=== PATIENT | female | born 1965 | race Caucasian/White ===

== ENCOUNTER 2019-01-21 16:39 | Emergency (ER) | payer OTHER ==
[2019-01-21] MEDS ORDERED: NA CHLORIDE 0.9% 1,000 ML ONE (17:33)
[2019-01-21 18:03] LABS: Absolute Lymphocytes (CBC) 0.4 K/uL (0.7-4.9); Basophils % 0.6 % (0-1.3); Hematocrit 36.9 % (36.0-45.0); Lymphocytes % 3.5 % (15.3-44.8); MPV 7.3 fL (7.6-11.3); RBC Red Blood Cell Count 4.34 M/uL (3.86-4.86)
[2019-01-21 18:12] LABS: Albumin 3.6 g/dL (3.4-5.0); Bilirubin Total 0.8 mg/dL (0.2-1.0); Potassium 3.8 mmol/L (3.5-5.1); Protein, Total 8.1 g/dL (6.4-8.2)
--- NOTE | 2019-01-21 19:37 | RAD REPORT ---
EXAM DESCRIPTION: CT - Abdomen Pelvis Wo Contrast - 01/21/2019 7:16 pm CLINICAL HISTORY: Abdominal pain COMPARISON: None TECHNIQUE: Computed axial tomography of the abdomen and pelvis was obtained. IV was not requested. O ral contrast was given. Coronal reconstructions performed. All CT scans are performed using dose optimization technique as appropriate and may include automated exposure control or mA/KV adjustment according to patient size. FINDINGS: The evaluation of solid organs and vessels is limited secondary to the lack of contrast a dministration. The right kidney is enlarged with little normal appearing parenchyma. Innumerable cysts are present. No hemorrhage is seen within the cysts. Left kidney is absent. Transplant kidney is present within the left pelvis. No hydronephrosis There is no evidence of diverticulitis. There are many hepatic cysts. Spleen, pancreas and adrenals appear grossly normal Hysterectomy IMPRESSION: No acute abnormality is displayed.
[2019-01-21 20:19] LABS: Urine Blood 1+ (NEG); Urine Glucose NEGATIVE (NEG); Urine Protein NEGATIVE (NEG)
[2019-01-21 20:50] LABS: Urine Bacteria >50 /HPF (<20); Urine Culture Reflex Order REFLEXED; Urine RBC <5 /HPF (NONE SEEN)
[2019-01-21] MEDS ORDERED: CEFTRIAXONE/SWI 1gm 1 GM/10 ML SYR ONE (21:02)
--- NOTE | 2019-01-21 21:04 | ER ---
Nurse's Notes [facility] Name: Lexie Quintana Age: 53 yrs Sex: Female : 1965 Arrival Date: 01/21/2019 Time: 16:42 Bed 14 Private MD: Diagnosis: Acute cystitis without hematuria Presentation: 01/21 16:43 Presenting complaint: Patient states: diarrhea since August 2018 and started with fever, sv vomiting, LUQ/LLQ pain x 1 week. Was dx with diverticulitis and ulcerative colitis recently. Transition of care: patient was not received from another setting of care. Onset of symptoms was January 2019. Risk Assessment: Do you want to hurt yourself or someone else? Patient reports no desire to harm self or others. Care prior to arrival: None. 16:43 Method Of Arrival: Ambulatory sv 16:43 Acuity: ALE 3 sv 16:45 Initial Sepsis Screen: Does the patient meet any 2 criteria? No. Patient's initial rb1 sepsis screen is negative. Does the patient have a suspected source of infection? No. Patient's initial sepsis screen is negative. 16:56 Note Had labs drawn at [facility], BUN-26, creatinine-1.62, absolute neutrophils 8110, sv absolute lymphocytes 750, absolute monocytes 1080. Historical: - Allergies: 16:55 Sulfa (Sulfonamide Antibiotics); sv - PMHx: 16:55 Hypertension; Diverticulitis; ulcerative colitis; Polycystic kidney disease; sv - PSHx: 16:55 left kidney transplant; right arm fistula from previous HD; Hysterectomy; ankle; sv - Immunization history:: Adult Immunizations up to date, Flu vaccine is up to date. - Social history:: Smoking status: Patient/guardian denies using tobacco. - Ebola Screening: : No symptoms or risks identified at this time. Screenin:45 Abuse screen: Denies threats or abuse. Nutritional screening: decreased appetite. rb1 Tuberculosis screening: No symptoms or risk factors identified. Fall Risk None identified. Assessment: 16:45 General: Appears in no apparent distress. comfortable, Behavior is calm, cooperative, rb1 Reports fever for. Pain: Complains of pain in left upper quadrant and left lower quadrant Pain currently is 5 out of 10 on a pain scale. Neuro: Level of Consciousness is awake, alert, obeys commands, Oriented to person, place, time, situation. Cardiovascular: Capillary refill < 3 seconds is brisk in bilateral fingers. Respiratory: Airway is patent Respiratory effort is even, unlabored, Respiratory pattern is regular, symmetrical. GI: Abdomen is non-distended, Reports diarrhea, nausea, vomiting. : No signs and/or symptoms were reported regarding the genitourinary system. Derm: Skin is pink, warm \T\ dry. dialysis graft in the right arm. 17:45 Reassessment: Patient appears in no apparent distress at this time. No changes from rb1 previously documented assessment. Pt. is talking in her telephone. 17:55 Reassessment: Called CT to notify them that th pt. finished their contrast. rb1 18:51 Reassessment: Patient appears in no apparent distress at this time. Patient and/or rb1 family updated on plan of care and expected duration. Pain level reassessed. Patient is alert, oriented x 3, equal unlabored respirations, skin warm/dry/pink. 19:12 Reassessment: Pt taken to CT. ea 19:20 Reassessment: Returned from CT. ea 19:25 General: Appears in no apparent distress. Behavior is calm, cooperative. Pain: Denies ea pain. Neuro: Level of Consciousness is awake, alert, obeys commands, Oriented to person, place, time, situation. Respiratory: Airway is patent Respiratory effort is even, unlabored, Respiratory pattern is regular, symmetrical. GI: Abdomen is non-distended, Reports diarrhea, nausea, vomiting. Derm: Skin is pink, warm \T\ dry. 20:26 Reassessment: Patient and/or family updated on plan of care and expected duration. Pain ea level reassessed. Patient is alert, oriented x 3, equal unlabored respirations, skin warm/dry/pink. Awaiting on lab results. Vital Signs: 16:55 BP 120 / 83; Pulse 83; Resp 16; Pulse Ox 99% ; Weight 88.45 kg; Height 5 ft. 5 in. sv (165.10 cm); 17:55 BP 117 / 82; Pulse 76; Resp 17; Temp 98.0(O); Pulse Ox 99% ; Pain 5/10; rb1 19:38 BP 120 / 65; Pulse 72; Resp 18; Pulse Ox 97% on R/A; ea 20:27 BP 115 / 66; Pulse 68; Resp 18; Pulse Ox 99% on R/A; ea 16:55 Body Mass Index 32.45 (88.45 kg, 165.10 cm) sv ED Course: 16:42 Patient arrived in ED. mr 16:54 Triage completed. sv 16:54 Cortez Tsai MD is Attending Physician. ps1 16:56 Arm band placed on. sv 17:30 Lexie Gutiérrez, RN is Primary Nurse. rb1 17:40 Inserted saline lock: 22 gauge in left antecubital area, using aseptic technique. Blood rb1 collected. 17:45 Missed attempt(s): 20 gauge in left forearm. antecubital area. mh5 17:46 Patient has correct armband on for positive identification. Bed in low position. Call mh5 light in reach. Side rails up X 1. Warm blanket given. Pulse ox on. NIBP on. 18:55 Report given to RASHEED Martin. rb1 19:16 CT completed. Patient tolerated procedure well. Patient moved to CT via wheelchair. nj Patient moved back from CT. 19:16 CT Abd/Pelvis - Without Cont (PO Contrast Only) In Process Unspecified. EDMS 21:22 No provider procedures requiring assistance completed. ea 21:43 IV discontinued, intact, bleeding controlled, No redness/swelling at site. Pressure ea dressing applied. Administered Medications: 17:40 Drug: NS 0.9% 1000 ml Route: IV; Rate: 1 bolus; Site: left antecubital; rb1 19:50 Follow up: Response: No adverse reaction; IV Status: Completed infusion; IV Intake: ea 1000ml 21:21 Drug: Rocephin 1 grams Route: IV; Rate: bolus; Site: left antecubital; ea 21:42 Follow up: Response: No adverse reaction; IV Status: Completed infusion ea Intake: 19:50 IV: 1000ml; Total: 1000ml. ea Outcome: 21:03 Discharge ordered by . ps1 21:42 Discharged to home ambulatory, with family. ea 21:42 Condition: stable 21:42 Discharge instructions given to patient, Instructed on discharge instructions, follow up and referral plans. medication usage, Demonstrated understanding of instructions, follow-up care, medications. 21:43 Patient left the ED. ea Addendum: 01/25/2019 11:03 Addendum: Culture Results: Positive urine culture. Bacteria is resistant to, has i w intermediate sensitivity, or is not tested against prescribed antibiotics. Report given to KERRI for further evaluation and then to lehr attendant for follow up with patient. Phone call Attempt #1 phone number not in service. Signatures: Dispatcher [employer] Shelly Vance, RN RASHEED gilbert Hurtado, Carmelita Segura, Nneka, RN Lexie Oakley, RN RN rb1 Blayne, Jesús Chowdary, Kacie [facility] Veronica García RN RN ea Singer, Phillip, MD MD ps1 Corrections: (The following items were deleted from the chart) 11:07 11:03 Addendum: Culture Results: Positive urine culture. Bacteria is resistant to, has iw intermediate sensitivity, or is not tested against prescribed antibiotics. Report given to KERRI for further evaluation and then to lehr attendant for follow up with patient. Phone call Attempt #1 pt states symptoms have improved, will make f/u appt with Dr. Kalani fournier
--- NOTE | 2019-01-21 21:04 | EDPHYS ---
Physician Documentation [facility] Name: Lexie Quintana Age: 53 yrs Sex: Female : 1965 Arrival Date: 01/21/2019 Time: 16:42 Bed 14 Private MD: ED Physician Cortez Tsai HPI: 01/21 17:44 This 53 yrs old Female presents to ER via Ambulatory with complaints of ps1 Vomiting/Diarrhea, Fever. 17:44 patient has a remote kidney transplant. Hx of nvd with BRBPR recently was treated for ps1 diverticulitis with cipro/flayl per Dr. Sanchez. No has recurrent diarrhea and fever. 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 Pain is mild. Not tolerating PO as much as usual and feels dehydrated. . Historical: - Allergies: 16:55 Sulfa (Sulfonamide Antibiotics); sv - PMHx: 16:55 Hypertension; Diverticulitis; ulcerative colitis; Polycystic kidney disease; sv - PSHx: 16:55 left kidney transplant; right arm fistula from previous HD; Hysterectomy; ankle; sv - Immunization history:: Adult Immunizations up to date, Flu vaccine is up to date. - Social history:: Smoking status: Patient/guardian denies using tobacco. - Ebola Screening: : No symptoms or risks identified at this time. ROS: 17:44 Cardiovascular: Negative for chest pain, palpitations, and edema, Respiratory: Negative ps1 for shortness of breath, cough, wheezing, and pleuritic chest pain, MS/Extremity: Negative for injury and deformity, Skin: Negative for injury, rash, and discoloration, Neuro: Negative for headache, weakness, numbness, tingling, and seizure. 17:44 Constitutional: Positive for body aches, fatigue, fever. 17:44 Abdomen/GI: Positive for nausea, vomiting, and diarrhea, bloody stools. Exam: 17:44 Constitutional: This is a well developed, well nourished patient who is awake, alert, ps1 and in no acute distress. Head/Face: Normocephalic, atraumatic. Eyes: Pupils equal round and reactive to light, extra-ocular motions intact. Lids and lashes normal. Conjunctiva and sclera are non-icteric and not injected. Chest/axilla: Normal chest wall appearance and motion. Nontender with no deformity. No lesions are appreciated. Cardiovascular: Regular rate and rhythm. No gallops, murmurs, or rubs. Normal PMI, no JVD. No pulse deficits. Respiratory: Lungs have equal breath sounds bilaterally, clear to auscultation and percussion. No rales, rhonchi or wheezes noted. No increased work of breathing, no retractions or nasal flaring. Abdomen/GI: Soft, non-tender, with normal bowel sounds. No distension or tympany. No guarding or rebound. No evidence of tenderness throughout. MS/ Extremity: Pulses equal, no cyanosis. Neurovascular intact. Full, normal range of motion. Neuro: Awake and alert, GCS 15, oriented to person, place, time, and situation. Cranial nerves II-XII grossly intact. Sensory grossly intact. Psych: Awake, alert, with orientation to person, place and time. Behavior, mood, and affect are within normal limits. Vital Signs: 16:55 BP 120 / 83; Pulse 83; Resp 16; Pulse Ox 99% ; Weight 88.45 kg; Height 5 ft. 5 in. sv (165.10 cm); 17:55 BP 117 / 82; Pulse 76; Resp 17; Temp 98.0(O); Pulse Ox 99% ; Pain 5/10; rb1 19:38 BP 120 / 65; Pulse 72; Resp 18; Pulse Ox 97% on R/A; ea 20:27 BP 115 / 66; Pulse 68; Resp 18; Pulse Ox 99% on R/A; ea 16:55 Body Mass Index 32.45 (88.45 kg, 165.10 cm) sv MDM: 17:15 Patient medically screened. ps1 21:04 Data reviewed: vital signs, nurses notes, lab test result(s), radiologic studies, and ps1 as a result, I will discharge patient. Counseling: I had a detailed discussion with the patient and/or guardian regarding: the historical points, exam findings, and any diagnostic results supporting the discharge/admit diagnosis, lab results, radiology results, the need for outpatient follow up, to return to the emergency department if symptoms worsen or persist or if there are any questions or concerns that arise at home. 01/21 17:09 Order name: CBC with Diff; Complete Time: 21:32 ps1 01/21 17:09 Order name: CMP; Complete Time: 18:17 ps1 01/21 17:09 Order name: Lactate; Complete Time: 18:17 ps1 01/21 17:09 Order name: Procalcitonin; Complete Time: 18:56 ps1 01/21 20:06 Order name: Urine Dipstick--Ancillary (enter results); Complete Time: 20:22 mw2 01/21 20:06 Order name: Urine --Ancillary (enter results); Complete Time: 20:22 mw2 01/21 17:09 Order name: CT Abd/Pelvis - Without Cont (PO Contrast Only); Complete Time: 19:41 ps1 01/21 20:06 Order name: Urine Microscopic Only; Complete Time: 20:52 ea 01/21 20:52 Order name: Urine Culture EDMS 01/21 21:27 Order name: Manual Differential; Complete Time: 21:32 EDMS Administered Medications: 17:40 Drug: NS 0.9% 1000 ml Route: IV; Rate: 1 bolus; Site: left antecubital; rb1 19:50 Follow up: Response: No adverse reaction; IV Status: Completed infusion; IV Intake: ea 1000ml 21:21 Drug: Rocephin 1 grams Route: IV; Rate: bolus; Site: left antecubital; ea 21:42 Follow up: Response: No adverse reaction; IV Status: Completed infusion ea Disposition: 01/21/19 21:03 Discharged to Home. Impression: Acute cystitis without hematuria. - Condition is Stable. - Discharge Instructions: Urinary Tract Infection, Adult. - Prescriptions for Keflex 500 mg Oral Capsule - take 1 capsule by ORAL route every 8 hours for 10 days; 30 capsule. - Work release form, Medication Reconciliation Form, Thank You Letter, Antibiotic Education, Prescription Opioid Use form. - Follow up: Private Physician; When: As needed; Reason: Further diagnostic work-up, Recheck today's complaints, Continuance of care, Re-evaluation by your physician. Follow up: Emergency Department; When: As needed; Reason: Fever > 102 F, Worsening of condition. Signatures: Dispatcher [employer] EDShelly Thakkar RN Lexie Ca RN RN rb1 Veronica García RN RN ea Singer, Phillip, MD MD ps1 Corrections: (The following items were deleted from the chart) 21:43 21:03 01/21/2019 21:03 Discharged to Home. Impression: Acute cystitis without ea hematuria. Condition is Stable. Forms are Medication Reconciliation Form, Thank You Letter, Antibiotic Education, Prescription Opioid Use. Follow up: Private Physician; When: As needed; Reason: Further diagnostic work-up, Recheck today's complaints, Continuance of care, Re-evaluation by your physician. Follow up: Emergency Department; When: As needed; Reason: Fever > 102 F, Worsening of condition. ps1
[2019-01-21 21:27] LABS: Blood Morphology Comment NOT SEEN (NOT SEEN); Platelet Estimate ADEQ
[2019-01-21 21:51] VITALS: TEMP 98
[2019-01-21 21:54] VITALS: BP 115/66; O2SAT 99
== END 2019-01-21 21:43 | disposition home or self-care (01) ==
LOC: ER 16:39
DX: N30.00 Acute cystitis without hematuria (principal); I10 Essential (primary) hypertension; Z88.2 Allergy status to sulfonamides
CPT/HCPCS: 96365; 96361; 87088; 85025; 87086; 36415; 81025; 83605; 87077; 87186; 80053; 84145; 74176; 99284; J0696; J7030; 81003; 81015

== ENCOUNTER 2024-06-18 09:46 | Emergency (ER) | payer BC ==
[2024-06-18 10:31] LABS: Absolute Lymphocytes (CBC) 0.4 K/uL (0.7-4.9); Absolute Monocytes 0.4 K/uL (0.1-1.3); Absolute Neutrophil 4.2 K/uL (1.8-8.0); Basophils % 0.8 % (0-1.3); Hematocrit 43.1 % (36.0-45.0); Hemoglobin 14.5 g/dL (12.0-15.0); Lymphocytes % 7.3 % (15.3-44.8); MCHC 33.7 g/dL (32.0-36.0); MCV 88.9 fL (80-100); MPV 7.4 fL (7.6-11.3); Monocytes % 8.4 % (3.3-12.3); Neutrophils % 82.5 % (41.7-73.7); Nucleated Red Blood Cells % 0.1 % (0-0); Platelets 189 thou/uL (152-406); RBC Red Blood Cell Count 4.85 M/uL (3.86-4.86); Red Cell Distribution Width 18.7 % (12.1-15.2)
--- NOTE | 2024-06-18 10:44 | RAD REPORT ---
EXAMINATION: ONE VIEW CHEST XR CLINICAL INDICATION: Female, 58 years old.,CHEST PAIN TECHNIQUE: Frontal chest projection is submitted. Examination is limited by patient positioning and t echnique. COMPARISON: 09/09/2018 FINDINGS: Superimposition of breast soft tissues upon the left hemithorax limits evaluation. The lungs are well inflated and clear. No pneumothorax or sizable effusion. The heart is normal in size. Mediastinal contours are unremarkable. IMPRESSION: No acute intrathoracic abnormalities.
[2024-06-18 10:52] LABS: AST/SGOT 11 U/L (15-37); Albumin 3.6 g/dL (3.4-5.0); Alkaline Phosphatase 79 U/L (45-117); Anion Gap 8.8 mEq/L (5.0-15.0); BUN Blood Urea Nitrogen 16 mg/dL (7-18); Bicarbonate 28 mEq/L (21-32); Bilirubin Direct 0.3 mg/dL (0-0.2); Bilirubin Indirect, Calculated 0.9 mg/dL (0.2-0.8); Bilirubin Total 1.2 mg/dL (0.2-1.0); Globulin 3.6 g/dL (2.3-3.5); Glomerular Filtration Rate 53 ml/min (=/>90); Glucose Level 104 mg/dL (74-106); Potassium 3.8 mEq/L (3.5-5.1); Protein, Total 7.2 g/dL (6.4-8.2); Sodium Level 135 mEq/L (136-145); Troponin High Sensitivity 6.8 pg/mL (<58.9)
[2024-06-18 10:58] LABS: ALT/SGPT < 14 U/L (13-56)
--- NOTE | 2024-06-18 13:08 | ER ---
Nurse's Notes [facility] Name: Lexie Quintana Age: 58 yrs Sex: Female : 1965 Arrival Date: 06/18/2024 Time: 09:46 Bed 14 Private MD: Diagnosis: Chest pain, unspecified Presentation: 06/18 09:53 Chief complaint: Patient states: CHEST PAIN STARTED THIS AM STOPPED NOW BUT WANTED TO db GET CHECKED OUT. HEART CATH ON 05/27 IN [place]. Coronavirus screen: Client denies travel out of the [place] in the last 14 days. At this time, the client does not indicate any symptoms associated with coronavirus-19. Ebola Screen: Patient negative for fever greater than or equal to 101.5 degrees Fahrenheit, and additional compatible Ebola Virus Disease symptoms Patient denies exposure to infectious person. Patient denies travel to an Ebola-affected area in the 21 days before illness onset. No symptoms or risks identified at this time. Initial Sepsis Screen: Does the patient meet any 2 criteria? No. Patient's initial sepsis screen is negative. Does the patient have a suspected source of infection? No. Patient's initial sepsis screen is negative. Risk Assessment: Do you want to hurt yourself or someone else? Patient reports no desire to harm self or others. Onset of symptoms. 09:53 Method Of Arrival: Ambulatory db 09:53 Acuity: ALE 2 db Triage Assessment: 09:55 General: Appears in no apparent distress. comfortable, Behavior is calm, cooperative. db Pain: Denies pain. Complains of pain in chest. Neuro: Level of Consciousness is awake, alert, obeys commands, Oriented to person, place, time, situation. Cardiovascular:. Historical: - Allergies: 10:14 Sulfa (Sulfonamide Antibiotics); db - PMHx: 10:14 Diverticulitis; Hypertension; POLYCYSTIC KIDNEY DISEASE; ulcerative colitis; db - PSHx: 10:14 HEART CATH (ulcerative colitis); db - Immunization history:: Adult Immunizations unknown. - Infectious Disease History:: Denies. - Social history:: Smoking status: Patient denies any tobacco usage or history of. Screenin:00 [facility] ED Fall Risk Assessment (Adult) History of falling in the last 3 months, db including since admission No falls in past 3 months (0 pts) Confusion or Disorientation No (0 pts) Intoxicated or Sedated No (0 pts) Impaired Gait No (0 pts) Mobility Assist Device Used No (0 pt) Altered Elimination No (0 pt) Score/Fall Risk Level 0 - 2 = Low Risk Oriented to surroundings, Maintained a safe environment. Abuse screen: Denies threats or abuse. Denies injuries from another. Nutritional screening: No deficits noted. Tuberculosis screening: No symptoms or risk factors identified. Assessment: 10:00 Reassessment: SEE TRIAGE FOR INITIAL ASSESSMENT. db 12:00 Reassessment: Patient appears in no apparent distress at this time. Patient and/or db family updated on plan of care and expected duration. Pain level reassessed. Patient is alert, oriented x 3, equal unlabored respirations, skin warm/dry/pink. General: Appears in no apparent distress. comfortable, Behavior is calm, cooperative. Vital Signs: 09:53 BP 114 / 68; Pulse 80; Resp 16; Temp 98.7; Pulse Ox 100% ; Weight 61.69 kg; Height 5 db ft. 4 in. ; Pain 0/10; 10:30 BP 122 / 83; Pulse 72; Resp 16; Pulse Ox 99% on R/A; db 11:30 BP 117 / 91; Pulse 75; Resp 16; Pulse Ox 95% ; db 12:25 BP 125 / 89; Pulse 74; Resp 16; Pulse Ox 100% on R/A; dd2 13:26 BP 124 / 70; Pulse 72; Resp 16; Pulse Ox 96% on R/A; dd2 09:53 Body Mass Index 23.34 (61.69 kg, 162.56 cm) db 09:53 Pain Scale: Adult db ED Course: 09:47 Patient arrived in ED. gl 09:47 Jerson Irving MD is Attending Physician. rt 09:55 Arm band placed on Patient placed in an exam room. db 09:58 Pati Farooq, RASHEED is Primary Nurse. db 10:14 Triage completed. db 10:16 EKG done. db 10:20 Initial lab(s) drawn, by me, sent to lab. Inserted saline lock: 20 gauge in left db antecubital area, using aseptic technique. Blood collected. Flushed with 10 mL NS. Patient maintains SpO2 saturation greater than 95% on room air. 10:23 XRAY Chest (1 view) In Process Unspecified. EDMS 10:58 Patient has correct armband on for positive identification. Bed in low position. Call db light in reach. Side rails up X 1. Pulse ox on. NIBP on. 12:00 Pillow given. db 13:26 Provided Education on: d/c education. dd2 13:26 No provider procedures requiring assistance completed. IV discontinued, intact, dd2 bleeding controlled, No redness/swelling at site. Pressure dressing applied. Administered Medications: No medications were administered Medication: 12:00 VIS not applicable for this client. db Outcome: 13:07 Discharge ordered by . rt 13: Discharged to home ambulatory, dd2 13: Condition: stable 13: Discharge instructions given to patient, Instructed on discharge instructions, follow up and referral plans. Demonstrated understanding of instructions, follow-up care, 13:27 Patient left the ED. dd2 Signatures: Dispatcher [employer] EDMS Pati Farooq, RASHEED RN db Jerson Irving MD MD rt BEN CARRERA RN RN dd2 Debora Calvert, Reg Reg gl
--- NOTE | 2024-06-18 13:08 | EDPHYS ---
Physician Documentation [facility] Name: Lexie Quintana Age: 58 yrs Sex: Female : 1965 Arrival Date: 06/18/2024 Time: 09:46 Bed 14 Private MD: ED Physician Jerson Irving HPI: 06/18 10:13 This 58 yrs old Female presents to ER via Unassigned with complaints of Chest Pain. rt 10:13 Patient presents to the ED with resolved chest pain starting about 2 hours ago. Reports rt that it was pressure-like in nature. Denies other associated symptoms. She took aspirin prior to arrival. States that she had a heart cath on 415 that showed noncritical CAD not requiring stenting. Was told that she needed to have a PVC ablation. Denies other acute complaints at this time, symptoms are moderate in severity, no aggravating alleviating factors.. Historical: - Allergies: 10:14 Sulfa (Sulfonamide Antibiotics); db - PMHx: 10:14 Diverticulitis; Hypertension; POLYCYSTIC KIDNEY DISEASE; ulcerative colitis; db - PSHx: 10:14 HEART CATH (ulcerative colitis); db - Immunization history:: Adult Immunizations unknown. - Infectious Disease History:: Denies. - Social history:: Smoking status: Patient denies any tobacco usage or history of. ROS: 10:13 Constitutional: Negative for fever, chills, and weight loss, Respiratory: Negative for rt shortness of breath, cough, wheezing, and pleuritic chest pain, Abdomen/GI: Negative for abdominal pain, nausea, vomiting, diarrhea, and constipation, MS/Extremity: Negative for injury and deformity, Skin: Negative for injury, rash, and discoloration, Neuro: Negative for headache, weakness, numbness, tingling, and seizure, 10:13 Cardiovascular: Positive for chest pain, Negative for edema, Exam: 10:13 Constitutional: This is a well developed, well nourished patient who is awake, alert, rt and in no acute distress. Head/Face: Normocephalic, atraumatic. Chest/axilla: Normal chest wall appearance and motion. Nontender with no deformity. No lesions are appreciated. Cardiovascular: Regular rate and rhythm with a normal S1 and S2. No gallops, murmurs, or rubs. Normal PMI, no JVD. No pulse deficits. Respiratory: Lungs have equal breath sounds bilaterally, clear to auscultation and percussion. No rales, rhonchi or wheezes noted. No increased work of breathing, no retractions or nasal flaring. Abdomen/GI: Soft, non-tender, with normal bowel sounds. No distension or tympany. No guarding or rebound. No evidence of tenderness throughout. Skin: Warm, dry with normal turgor. Normal color with no rashes, no lesions, and no evidence of cellulitis. MS/ Extremity: Pulses equal, no cyanosis. Neurovascular intact. Full, normal range of motion. Neuro: Awake and alert, GCS 15, oriented to person, place, time, and situation. Cranial nerves II-XII grossly intact. Motor strength 5/5 in all extremities. Sensory grossly intact. Cerebellar exam normal. Normal gait. 10:13 ECG was reviewed by the Attending Physician. Vital Signs: 09:53 BP 114 / 68; Pulse 80; Resp 16; Temp 98.7; Pulse Ox 100% ; Weight 61.69 kg; Height 5 db ft. 4 in. ; Pain 0/10; 10:30 BP 122 / 83; Pulse 72; Resp 16; Pulse Ox 99% on R/A; db 11:30 BP 117 / 91; Pulse 75; Resp 16; Pulse Ox 95% ; db 12:25 BP 125 / 89; Pulse 74; Resp 16; Pulse Ox 100% on R/A; dd2 13:26 BP 124 / 70; Pulse 72; Resp 16; Pulse Ox 96% on R/A; dd2 09:53 Body Mass Index 23.34 (61.69 kg, 162.56 cm) db 09:53 Pain Scale: Adult db MDM: 09:55 Medical Screening Exam initiated rt 13:21 Differential diagnosis: ACS, PVCs, nonspecific chest pain, pneumonia. HEART Score: rt History: Slightly Suspicious (0), ECG: Non specific repolarization disturbance / LBTB / PM (1), Age: > 45 and < 65 years (1), Risk Factors: > or = 3 Risk factors for atherosclerotic disease (2), Troponin: < or = 1 x Normal Limit (0), Total Score = 4. The patient was not given aspirin in the Emergency Department. Patient reports taking aspirin within the past 24 hours. Data reviewed: vital signs, nurses notes, lab test result(s), EKG, radiologic studies. Consideration of Admission/Observation Escalation of care including admission/observation considered. Patient had a heart cath less than 1 month ago with no stent placements. She does have an appointment with her pit inspector in 2 days. Symptoms resolved in the emergency department, she has 2 negative troponins, at this time, I do not believe that she would likely benefit from admission to the hospital, believe that she is stable for outpatient care, strict return precautions were discussed.. Management of patient was discussed with the following: Primary Care Provider: Discussed with the patient's primary care. I considered the following discharge prescriptions or medication management in the emergency department. Independent interpretation of the following test(s) in the Emergency Department X-Ray: My interpretation is No infiltrate seen on interpretation of the x-ray images. Care significantly affected by the following chronic conditions: Hypertension, Chronic Kidney Disease. Counseling: I had a detailed discussion with the patient and/or guardian regarding the historical points, exam findings, and any diagnostic results supporting the discharge/admit diagnosis, lab results, radiology results, the need for outpatient follow up, to return to the emergency department if symptoms worsen or persist or if there are any questions or concerns that arise at home. Response to treatment: the patient's symptoms have resolved after treatment, the patient's pain is gone. 06/18 10:05 Order name: Basic Metabolic Panel; Complete Time: 11:05 rt 06/18 10:05 Order name: CBC with Diff; Complete Time: 10:45 rt 06/18 10:05 Order name: LFT's; Complete Time: 11:05 rt 06/18 10:05 Order name: Troponin HS; Complete Time: 11:05 rt 06/18 11:19 Order name: Troponin High Sensitivity; Complete Time: 13:05 rt 06/18 10:05 Order name: XRAY Chest (1 view); Complete Time: 10:45 rt 06/18 10:05 Order name: EKG; Complete Time: 10:06 rt 06/18 10:05 Order name: Cardiac monitoring; Complete Time: 10:43 rt 06/18 10:05 Order name: EKG - Nurse/Tech; Complete Time: 10:43 rt 06/18 10:05 Order name: IV Saline Lock; Complete Time: 10:43 rt 06/18 10:05 Order name: Labs collected and sent; Complete Time: 10: rt 06/18 10:05 Order name: O2 Per Protocol; Complete Time: rt 06/18 10:05 Order name: O2 Sat Monitoring; Complete Time: rt EC: Rate is 76 beats/min. Rhythm is regular, Normal Sinus Rhythm with Unifocal PVCs. QRS rt [place] is Normal. [place] interval is normal. QRS interval is normal. QT interval is normal. No Q waves. No ST changes noted. Interpreted by me. Administered Medications: No medications were administered Disposition Summary: 06/18/24 13:07 Discharge Ordered Notes: Location: Home rt Problem: new rt Symptoms: have improved rt Condition: Stable rt Diagnosis - Chest pain, unspecified rt Followup: rt - With: Private Physician - When: 2 - 3 days - Reason: Discharge Instructions: - Discharge Summary Sheet rt - Nonspecific Chest Pain, Adult rt Forms: - Medication Reconciliation Form rt - Antibiotic Education rt - Prescription Opioid Use rt - Patient Portal Instructions rt - Leadership Thank You Letter rt Signatures: Dispatcher [employer] Pati Meza, RASHEED RN Jerson Willard MD MD rt
[2024-06-18 17:16] VITALS: TEMP 98.7
[2024-06-18 17:24] VITALS: BP 124/70; O2SAT 96
--- NOTE | 2024-06-19 11:44 | EKG ---
Test Date: 2024-06-18 Test Time: 09:56:13 [place] Fil[employer] Supervisor: RADHA MEASUREMENT RESULTS: Intervals: Rate: 76 DC: 178 QRSD: 88 QT: 386 QTc: 434 [place]: P: 59 DC: 178 QRS: 2 T: 49 INTERPRETIVE STATEMENTS: Sinus rhythm with occasional premature ventricular complexes Otherwise normal ECG No previous ECG available for comparison Electronically Signed On 06-19-24 11:40:24 CDT by Phil Bustillos
== END 2024-06-18 13:27 | disposition home or self-care (01) ==
LOC: ER 09:46
DX: R07.9 Chest pain, unspecified (principal); I10 Essential (primary) hypertension; Q61.3 Polycystic kidney, unspecified
CPT/HCPCS: 36415; 71045; 80048; 80076; 84484; 85025; 93005; 99284